=== PATIENT | male | born 1940 | race Caucasian/White ===

== ENCOUNTER 2017-03-10 08:42 | Inpatient (IN) ==
[2017-03-10 16:12] LABS: Basophils % 0.3 % (0.0-0.8); Eosinophils # 0.1 10*3/uL (0.0-0.87); Eosinophils % 1.3 % (0.00-10.9); Hematocrit 41.8 VOL% (42.0-52.0); Hemoglobin 14.2 GM/DL (14.0-18.0); Immature Granulocytes % 0.3 %; Immature Granulocytes Absolute 0.03 #; Lymphocytes # 2.3 10*3/uL (1.4-4.0); Lymphocytes % 22.5 % (21.2-54.2); Mean Corpuscular Hemoglobin 32 PG (27-34); Mean Corpuscular Volume 92.7 FL (87-102); Monocytes # 1.5 10*3/uL (0.11-0.8); Monocytes % 14.5 % (1.7-12.7); Neutrophils # 6.3 10*3/uL (1.4-7.4); Neutrophils % 61.1 % (38.7-73.9); Platelet Count 194 T/CUMM (130-400); Red Blood Count 4.51 MC/CUMM (3.8-5.5); Red Cell Distribution Width 14.1 % (9.3-17.3); White Blood Count 10.4 T/CUMM (4-12)
[2017-03-10 16:23] LABS: Albumin 3.5 G/DL (3.4-5.0); Bilirubin,Total 0.7 MG/DL (0.2-1.0); Calcium 9.6 MG/DL (8.5-10.1); Osmolality,Calculated 274.8 MOS/KG (273-304); Potassium 3.8 MMOL/L (3.5-5.1); Total Protein 7.5 G/DL (6.4-8.3)
--- NOTE | 2017-03-10 16:54 | Cardiothoracic History & Phys ---
Assessment and Plan - Time spent with patient Time spent with patient: Greater than 30 minutes (1) Coronary artery disease Status: Acute Assessment and plan: Risk Model and Variables - STS Adult Cardiac Surgery Database Version 2.81 RISK SCORES About the STS Risk Calculator Procedure: CAB Only Risk of Mortality: 1.935% Morbidity or Mortality: 20.191% Long Length of Stay: 9.841% Short Length of Stay: 28.252% Permanent Stroke: 1.844% Prolonged Ventilation: 15.06% DSW Infection: 1.06% Renal Failure: 4.836% Reoperation: 6.942% 76-year-old male who was transferred from [place] under my care for coronary artery bypass graft. Risks benefits and alternatives were discussed with the patient and the family in details. They understand and they are willing and eager to proceed as soon as possible. I will obtain a lower extremity vein mapping today to evaluate the vein grafts. I would keep the patient under close observation and telemetry unit in case he developed severe chest pain indicating myocardial ischemia since he was having unstable angina prior to admission. Current Visit: Yes History of Present Illness Chief complaint: Unstable angina History of present illness: Mr. Monreal is a 76 year old male has been having some shortness of breath and chest pain at rest. The patient had a cardiac cath yesterday at [place] showing severe multivessel coronary artery disease. I was consulted to evaluate if the patient is a candidate for surgery. I evaluated the patient and I transferred him here under my care to proceed with CABG. The patient currently has no pain. He has no complaints. Home Medications Medication Instructions Recorded Confirmed Type Allopurinol [Allopurinol] 300 mg PO DAILY 03/10/17 03/10/17 History Amlodipine Besylate [Amlodipine 10 mg PO DAILY 03/10/17 03/10/17 History Besylate] Ezetimibe [Ezetimibe] 10 mg PO DAILY 03/10/17 03/10/17 History Latanoprost 0.005% Oph Soln 1 drop BOTH EYES BEDTIME 03/10/17 03/10/17 History [Xalatan 0.005% Oph Soln] Lisinopril [Lisinopril] 5 mg PO DAILY 03/10/17 03/10/17 History Metformin HCl [Metformin HCl] 500 mg PO BID 03/10/17 03/10/17 History Metoprolol Succinate Xl [Toprol Xl] 200 mg PO DAILY 03/10/17 03/10/17 History Rosuvastatin Calcium [Rosuvastatin 40 mg PO BEDTIME 03/10/17 03/10/17 History Calcium] hydroCHLOROthiazide 25 mg PO DAILY 03/10/17 03/10/17 History [Hydrochlorothiazide] 12 point system: reviewed and no additional remarkable complaints except as stated (HPI) Medical,Surgical,& Family Hx - Medical History Cardio: History of: CAD, Hypertension, Cardiovascular Problems HEENT: History of: Eye Problem (cataracts removed) Endocrine: History of: Diabetes Mellitus (NIDDM) (metformin to treat) Rheumatology: History of;: Gout - Surgical History Cardiac Surgeries: Sugical HX of: Cardiac Catheterization (03/09/17) Abdominal Surgeries: Surgical HX of: Colonoscopy - Family History Family History: Reports;: Family Diabetes, Family Heart Disease, Family Hypertension, Family Stroke Denies;: Family Anesthesia Reaction, Family Cancer - Social History Smoking Status: Never smoker Frequency of Alcohol Use: None Type of Drug Use: None Cardiology Physical Exam - Constitutional Vitals: Vital Signs Temp Pulse Resp BP Pulse Ox 98.2 F 70 18 138/73 100 03/10/17 14:37 03/10/17 14:37 03/10/17 14:37 03/10/17 14:37 03/10/17 14:37 Intake and Output 03/10/17 03/10/17 03/10/17 06:59 14:59 22:59 Other: Weight 99.507 kg Patient Weight 03/11/17 06:59 Weight 99.507 kg General appearance: morbidly obese - Head Head exam: Present: normal inspection - Eye Eye exam: Present: EOMI Pupils: Present: IVORY - Neck Neck exam: Present: normal inspection - Respiratory Respiratory exam: Present: clear to auscultation bilaterally - Cardiovascular Cardiovascular exam: Present: regular rate and rhythm - GI/Abdominal GI/Abdominal exam: Present: normal bowel sounds Result/EKG - Labs CBC & BMP: 03/10/17 15:53 03/10/17 15:53 Labs: Laboratory Results - last 24 hr 03/10/17 03/10/17 15:53 15:53 WBC 10.4 RBC 4.51 Hgb 14.2 Hct 41.8 L MCV 92.7 MCH 32 MCHC 34.0 RDW 14.1 Plt Count 194 MPV 10.0 Neut % (Auto) 61.1 Lymph % (Auto) 22.5 [place] % (Auto) 14.5 H Eos % (Auto) 1.3 Baso % (Auto) 0.3 Neut # (Auto) 6.3 Lymph # (Auto) 2.3 [place] # (Auto) 1.5 H Eos # (Auto) 0.1 Baso # (Auto) 0.0 Immature Gran % 0.3 Nucleated RBC % 0.0 Immature Gran # 0.03 Nucleated RBCs # 0.00 Immature Plt Fraction 0.0 Sodium 137 Potassium 3.8 Chloride 102 Carbon Dioxide 29 Anion Gap 9.8 BUN 15 Creatinine 1.00 GFR Calculation 91 BUN/Creatinine Ratio 15.00 Glucose 123 H Calculated Osmolality 274.8 Calcium 9.6 Total Bilirubin 0.70 AST 40 H ALT 75 H Alkaline Phosphatase 47 Total Protein 7.5 Albumin 3.5 Globulin 4.0 H Albumin/Globulin Ratio 0.8 L Quality Measures - VTE Contraindication to Pharmacological VTE Prophylaxis: Active Bleeding
--- NOTE | 2017-03-10 17:36 | XRay Report ---
Portable chest Exam date: 03/10/2017 3:37 PM Indication: Chest pain coronary artery disease Comparison: Not available Findings: Cardiomediastinal contours are within normal limits. Elevation left hemidiaphragm. No acute osseous abnormalities. Visualized upper abdomen demonstrates no acute pathology. Impression: Marked elevation of the left hemidiaphragm PROCEDURE INTERPRETED AT [facility] DEPARTMENT OF RADIOLOGY Final Report Signed by: Katarzyna Freeman MD
--- NOTE | 2017-03-10 18:46 | Ultrasound Report ---
Exam: US venous doppler LE BI Indication: Pain and swelling Date: 03/10/2017 423 PM Technique: Freeman scale Doppler with color flow and spectral broadening was performed in routine fashion of the lower extremities per routine protocol Findings: The right common femoral, superficial femoral, popliteal and proximal saphenous saphenous veins are patent with normal waveform phasicity and augmentation as well as complete vessel compressibility. There is no evidence of popliteal or Castillo's cyst. The left common femoral, superficial femoral, popliteal and proximal saphenous saphenous veins are patent with normal waveform phasicity and augmentation as well as complete vessel compressibility. There is no evidence of popliteal or Castillo's cyst. Impression: No evidence of deep venous thrombosis within bilateral lower extremity Ultrasound images were captured and stored. PROCEDURE INTERPRETED AT [facility] DEPARTMENT OF RADIOLOGY Final Report Signed by: Katarzyna Freeman MD
[2017-03-11 06:22] LABS: Basophils % 0.3 % (0.0-0.8); Eosinophils # 0.2 10*3/uL (0.0-0.87); Eosinophils % 1.8 % (0.00-10.9); Hematocrit 41.9 VOL% (42.0-52.0); Hemoglobin 14.2 GM/DL (14.0-18.0); Immature Granulocytes % 0.3 %; Immature Granulocytes Absolute 0.03 #; Lymphocytes # 3.1 10*3/uL (1.4-4.0); Lymphocytes % 30.5 % (21.2-54.2); Mean Corpuscular HGB Conc 33.9 GM/DL (32-36); Mean Corpuscular Hemoglobin 31 PG (27-34); Mean Corpuscular Volume 92.3 FL (87-102); Mean Platelet Volume 10.4 FL (9.6-12.0); Monocytes # 1.3 10*3/uL (0.11-0.8); Monocytes % 12.5 % (1.7-12.7); Neutrophils # 5.6 10*3/uL (1.4-7.4); Neutrophils % 54.6 % (38.7-73.9); Platelet Count 190 T/CUMM (130-400); Red Blood Count 4.54 MC/CUMM (3.8-5.5); Red Cell Distribution Width 14.2 % (9.3-17.3); White Blood Count 10.3 T/CUMM (4-12)
[2017-03-11] MEDS: SODIUM CHLORIDE 0.9% 1,000 ML IV SCH ×2 (06:59→18:46)
[2017-03-11 07:01] LABS: Albumin 3.5 G/DL (3.4-5.0); Bilirubin,Total 1.1 MG/DL (0.2-1.0); Calcium 9.7 MG/DL (8.5-10.1); Osmolality,Calculated 274.7 MOS/KG (273-304); Potassium 3.9 MMOL/L (3.5-5.1); Total Protein 7.4 G/DL (6.4-8.3)
--- NOTE | 2017-03-11 08:59 | CT Report ---
History: Abnormal chest x-ray. Marked elevation left hemidiaphragm. Coronary artery disease Date: 03/11/2017 Study: CT chest without contrast Comparison exam: Chest x-ray 03/10/[address] sections were obtained through the lungs without contrast. There is nonspecific elevation of the left hemidiaphragm approximately 9 cm higher than the right hemidiaphragm. Consider diaphragmatic eventration and diaphragmatic paralysis. There is no obvious left hilar mass noted on this noncontrast study. No mediastinal mass or mediastinal lymphadenopathy is seen. There is no thoracic aortic aneurysm. There is severe coronary artery calcification with involvement of the left main, left anterior descending, and left circumflex coronary arteries. There is some mild paraseptal emphysema in the right lung. There is some atelectatic change in the left lower lobe which could be related to passive atelectasis from diaphragmatic elevation. There is some cylindrical bronchiectasis of a mild degree in the upper lobes, lower lobes, and right middle lobe. Spondylotic changes of the spine are present. There is a 2.7 cm rounded water density opacity in the mid left kidney, likely renal cyst. The CT exam was performed using one or more of the following dose reduction techniques: Automated exposure control, adjustment of the mA and/or kV according to patient size, or use of iterative reconstruction technique. Impression: Elevation left hemidiaphragm of uncertain chronicity. This could be related to diaphragmatic eventration or diaphragmatic paralysis. There is no definite left hilar or mediastinal mass. Left lower lobe atelectasis may be related to passive atelectasis from the diaphragmatic eventration Prominent coronary artery calcification Mild cylindrical bronchiectasis Mild paraseptal emphysema PROCEDURE INTERPRETED AT [facility] DEPARTMENT OF RADIOLOGY Final Report Signed by: Dr. Koki Leos
[2017-03-11] MEDS: CHLORHEXIDINE 4% SOLN 118 ML BOTTLE TOP SCH ×2 (15:31→21:35)
--- NOTE | 2017-03-11 16:02 | Cardiothoracic Progress Note ---
Assessment and Plan (1) Coronary artery disease Status: Acute Assessment and plan: 76-year-old male with severe multivessel coronary artery disease. The patient currently has no complaints. He is ready for surgery on March 12 for CABG. Please note that on his admission chest x-ray I noted elevation of the left hemidiaphragm with possible eventration. I obtained a CT scan and confirmed the same findings. This was explained in details with the patient. Current Visit: Yes Exam (Progress Note) - Constitutional Vitals: Period Temp Pulse Resp BP Sys/Vance Pulse Ox Last 24 Hr 97.3 F-99.2 F 65-73 16-22 114-158/60-83 96-98 Result/EKG - Labs CBC & BMP: 03/11/17 04:08 03/11/17 04:08 Labs: Laboratory Results - last 24 hr 03/10/17 03/10/17 03/10/17 15:53 15:53 15:53 WBC 10.4 RBC 4.51 Hgb 14.2 Hct 41.8 L MCV 92.7 MCH 32 MCHC 34.0 RDW 14.1 Plt Count 194 MPV 10.0 Neut % (Auto) 61.1 Lymph % (Auto) 22.5 [place] % (Auto) 14.5 H Eos % (Auto) 1.3 Baso % (Auto) 0.3 Neut # (Auto) 6.3 Lymph # (Auto) 2.3 [place] # (Auto) 1.5 H Eos # (Auto) 0.1 Baso # (Auto) 0.0 Immature Gran % 0.3 Nucleated RBC % 0.0 Immature Gran # 0.03 Nucleated RBCs # 0.00 Immature Plt Fraction 0.0 Sodium 137 Potassium 3.8 Chloride 102 Carbon Dioxide 29 Anion Gap 9.8 BUN 15 Creatinine 1.00 GFR Calculation 91 BUN/Creatinine Ratio 15.00 Glucose 123 H POC Glucose Calculated Osmolality 274.8 Calcium 9.6 Total Bilirubin 0.70 AST 40 H ALT 75 H Alkaline Phosphatase 47 Total Protein 7.5 Albumin 3.5 Globulin 4.0 H Albumin/Globulin Ratio 0.8 L Blood Type A POSITIVE Antibody Screen Negative Crossmatch 03/10/17 03/11/17 03/11/17 18:53 04:08 04:08 WBC 10.3 RBC 4.54 Hgb 14.2 Hct 41.9 L MCV 92.3 MCH 31 MCHC 33.9 RDW 14.2 Plt Count 190 MPV 10.4 Neut % (Auto) 54.6 Lymph % (Auto) 30.5 [place] % (Auto) 12.5 Eos % (Auto) 1.8 Baso % (Auto) 0.3 Neut # (Auto) 5.6 Lymph # (Auto) 3.1 [place] # (Auto) 1.3 H Eos # (Auto) 0.2 Baso # (Auto) 0.0 Immature Gran % 0.3 Nucleated RBC % 0.0 Immature Gran # 0.03 Nucleated RBCs # 0.00 Immature Plt Fraction 0.0 Sodium 138 Potassium 3.9 Chloride 102 Carbon Dioxide 29 Anion Gap 10.9 BUN 12 Creatinine 0.90 GFR Calculation 103 BUN/Creatinine Ratio 13.00 Glucose 95 POC Glucose 177 H Calculated Osmolality 274.7 Calcium 9.7 Total Bilirubin 1.10 H AST 39 H ALT 76 H Alkaline Phosphatase 43 L Total Protein 7.4 Albumin 3.5 Globulin 3.9 H Albumin/Globulin Ratio 0.8 L Blood Type Antibody Screen Crossmatch 03/11/17 03/11/17 04:08 07:35 WBC RBC Hgb Hct MCV MCH MCHC RDW Plt Count MPV Neut % (Auto) Lymph % (Auto) [place] % (Auto) Eos % (Auto) Baso % (Auto) Neut # (Auto) Lymph # (Auto) [place] # (Auto) Eos # (Auto) Baso # (Auto) Immature Gran % Nucleated RBC % Immature Gran # Nucleated RBCs # Immature Plt Fraction Sodium Potassium Chloride Carbon Dioxide Anion Gap BUN Creatinine GFR Calculation BUN/Creatinine Ratio Glucose POC Glucose 127 H Calculated Osmolality Calcium Total Bilirubin AST ALT Alkaline Phosphatase Total Protein Albumin Globulin Albumin/Globulin Ratio Blood Type A POSITIVE Antibody Screen Negative Crossmatch See Detail Quality Measures - VTE Contraindication to Pharmacological VTE Prophylaxis: Active Bleeding
[2017-03-11] MEDS: CHLORHEXIDINE 0.12% ORAL RINSE 60 ML BOTTLE SWISH/SPIT SCH (21:34)
[2017-03-12] MEDS ORDERED: PAPAVERINE 60 MG/2 ML VIAL ONE (04:35)
[2017-03-12] MEDS ORDERED: TISSUE ADHESIVE 1 EACH APPLICATOR TOP ONE (04:35)
[2017-03-12] MEDS ORDERED: VANCOMYCIN 1,000 MG VIAL ONE (04:36)
[2017-03-12] MEDS: CHLORHEXIDINE 4% SOLN 118 ML BOTTLE TOP SCH ×2 (05:08→11:21)
[2017-03-12] MEDS: CHLORHEXIDINE 0.12% ORAL RINSE 60 ML BOTTLE SWISH/SPIT SCH ×3 (05:08→21:53)
[2017-03-12] MEDS ORDERED: FAMOTIDINE 20 MG TABLET PO ONE (05:51)
[2017-03-12] MEDS ORDERED: LORazepam 1 MG TABLET PO ONE (05:52)
[2017-03-12] MEDS ORDERED: CEFUROXIME INJ 1,500 MG in SODIUM CHLORIDE 0.9% 100 ML IV ONE (06:00)
[2017-03-12] MEDS ORDERED: DEXMEDETOMIDINE 200 MCG/2 ML VIAL IV ONE (06:03)
[2017-03-12] MEDS ORDERED: CALCIUM CHLORIDE 1,000 MG/10 ML VIAL IV ONE (06:33)
[2017-03-12] MEDS ORDERED: NITROGLYCERIN 50 MG/250 ML BOTTLE IV ONE (06:33)
[2017-03-12] MEDS ORDERED: ETOMIDATE 20 MG/10 ML VIAL IV ONE (06:33)
[2017-03-12] MEDS ORDERED: CALCIUM CHLORIDE 1,000 MG/10 ML SYRINGE IV ONE (06:33)
[2017-03-12] MEDS ORDERED: PHENYLEPHRINE 20 MG/250 ML PREMIX IV ONE (06:33)
[2017-03-12] MEDS ORDERED: AMINOCAPROIC ACID 5,000 MG/20 ML VIAL IV ONE (06:33)
[2017-03-12] MEDS ORDERED: MINERAL OIL/PETROLATUM OPH OINT 3.5 GM TUBE ONE (06:33)
[2017-03-12] MEDS ORDERED: VECURONIUM 10 MG VIAL IV ONE (06:33)
[2017-03-12] MEDS ORDERED: LIDOCAINE 1% 5 ML VIAL ONE (06:33)
[2017-03-12] MEDS ORDERED: HEPARIN/NACL 0.9% 2 UNITS/ML 500 ML IV ONE (06:33)
[2017-03-12 07:26] LABS: ABG Base Excess 0.1 MMOL/L (-2.5-2.5); ABG HCO3 24.6 MMOL/L (20-26); ABG Oxygen Saturation 99.5 % (95-100); ABG PCO2 37.1 MM HG (35-48); ABG PH 7.423 (7.35-7.45); ABG TCO2 21.2 MMOL/L (23-27); Glucose Heart Surgery 117 MG/DL (74-106); Hematocrit Heart Surgery 39.1 PERCENT (42-52); Hemoglobin Heart Surgery 12.7 G/DL (14.0-18.0); Ionized Calcium Arterial 1.17 MMOL/L (1.21-1.46); PCO2 Patient Temp Arterial 37.1 MMHG; PH Patient Temp Arterial 7.423; Patient Temperature 37 CELCIUS; Potassium Heart/CVR 3.6 MMOL/L (3.5-5.1); Sodium Heart/CVR 140 MMOL/L (135-145)
[2017-03-12 07:53] LABS: Apearance,Urine Slightly Hazy (Clear); Bilirubin,Urine Negative (Negative); Blood, Urine Small mg/dL (Negative); Glucose,Urine (UA) Negative (Negative); Ketones,Urine Negative (Negative); Mucus,Urine Occasional /LPF (Occasional); Nitrite,Urine Negative (Negative); Protein,Urine Negative; RBC,Urine <1 /HPF (0-4); Squamous Epithelial Cell,Urine Occasional /HPF (0-10); Urine Color Yellow (Yellow); Urine Specific Gravity 1.019 (1.001-1.035); Urine Urobilinogen < 2.0 EU/DL (0.2-1.0); WBC,Urine 1 /HPF (0-6)
[2017-03-12] MEDS ORDERED: POTASSIUM CHLORIDE RIDER 100 ML IV ONE (09:17)
[2017-03-12] MEDS ORDERED: NITROPRUSSIDE 50 MG/2 ML VIAL ONE (09:17)
[2017-03-12] MEDS ORDERED: ALBUMIN 5% 12.5 GM/250 ML VIAL IV ONE (09:17)
[2017-03-12] MEDS ORDERED: MIDAZOLAM 2 MG/2 ML VIAL ONE (09:18)
[2017-03-12 09:36] LABS: Hematocrit Heart Surgery 25.7 PERCENT (42-52); Hemoglobin Heart Surgery 8.3 G/DL (14.0-18.0); PCO2 Patient Temp Venous 44.8 MM HG; PH Patient Temp Venous 7.379; Potassium Heart/CVR 4.6 MMOL/L (3.5-5.1); VBG Base Excess 1.1 MEQ/L (0-4); VBG HCO3 25.1 MEQ/L (24-28); VBG Oxygen Saturation 76.6 %; VBG PCO2 44.8 MMHG (41-51); VBG PH 7.379
[2017-03-12 10:05] LABS: Hematocrit Heart Surgery 26.8 PERCENT (42-52); Hemoglobin Heart Surgery 8.6 G/DL (14.0-18.0); PCO2 Patient Temp Venous 38.2 MM HG; PH Patient Temp Venous 7.459; PO2 Patient Temp Venous 34.1 MM HG; Potassium Heart/CVR 4.5 MMOL/L (3.5-5.1); VBG Base Excess 3.3 MEQ/L (0-4); VBG Oxygen Saturation 73.4 %; VBG PCO2 42.1 MMHG (41-51); VBG PH 7.43; VBG PO2 39.3 MMHG (17-40)
[2017-03-12 10:43] LABS: ABG Base Excess 0.6 MMOL/L (-2.5-2.5); ABG Oxygen Saturation 99.6 % (95-100); ABG PH 7.408 (7.35-7.45); ABG TCO2 23.2 MMOL/L (23-27); Glucose Heart Surgery 306 MG/DL (74-106); Hematocrit Heart Surgery 28.7 PERCENT (42-52); Hemoglobin Heart Surgery 9.2 G/DL (14.0-18.0); PH Patient Temp Arterial 7.408; Patient Temperature 37 CELCIUS; Potassium Heart/CVR 3.8 MMOL/L (3.5-5.1); Sodium Heart/CVR 132 MMOL/L (135-145)
[2017-03-12] MEDS ORDERED: MANNITOL 100 GM/500 ML BAG IV ONE (11:20)
[2017-03-12] MEDS ORDERED: DEXTROSE 5% KCL 20 MEQ 40 MEQ/2,000 ML BAG IV ONE (11:20)
[2017-03-12] MEDS ORDERED: SODIUM BICARBONATE 50 MEQ/50 ML SYRINGE IV ONE (11:21)
[2017-03-12] MEDS ORDERED: PROTAMINE SULFATE 250 MG/25 ML VIAL IV ONE (11:21)
[2017-03-12] MEDS ORDERED: ALBUMIN 25% 25 GM/100 ML VIAL IV ONE (11:21)
[2017-03-12] MEDS ORDERED: HEPARIN 10,000 UNIT/10 ML VIAL ONE (11:21)
[2017-03-12] MEDS ORDERED: FUROSEMIDE 20 MG/2 ML VIAL ONE (11:21)
[2017-03-12] MEDS ORDERED: methylPREDNISolone SOD SUC 1,000 MG/8 ML VIAL ONE (11:21)
[2017-03-12] MEDS ORDERED: MAGNESIUM SULFATE 1 GM/2 ML VIAL ONE (11:21)
[2017-03-12] MEDS ORDERED: PROTAMINE SULFATE 50 MG/5 ML VIAL IV ONE (11:22)
[2017-03-12] MEDS ORDERED: MIDAZOLAM 10 MG/2 ML VIAL ONE (11:54)
[2017-03-12] MEDS ORDERED: SODIUM CHLORIDE 0.9% 100 ML IV ONE (11:54)
[2017-03-12] MEDS ORDERED: SODIUM CHLORIDE 0.9% 250 ML IV ONE (11:54)
[2017-03-12] MEDS ORDERED: SEVOFLURANE 1 UNIT/15 MINUTE INH ONE (11:54)
[2017-03-12] MEDS ORDERED: SODIUM CHLORIDE 0.9% 2,000 ML IV ONE (11:54)
[2017-03-12] MEDS ORDERED: LACTATED RINGERS 1,000 ML IV ONE (11:54)
[2017-03-12] MEDS ORDERED: fentaNYL 100 MCG/2 ML VIAL ONE ×3 (11:54→14:43)
[2017-03-12] MEDS ORDERED: ePHEDrine 50 MG/ML AMP ONE (11:55)
[2017-03-12] MEDS: SODIUM CHLORIDE 0.45% 1,000 ML IV SCH ×2 (12:00)
[2017-03-12] MEDS ORDERED: MAGNESIUM SULF RIDER 4 GM in PREMIX 1 EACH IV PRN (12:08)
[2017-03-12] MEDS ORDERED: MIDAZOLAM 2 MG/2 ML VIAL IV PRN (12:08)
[2017-03-12] MEDS ORDERED: POTASSIUM CHLORIDE RIDER 10 MEQ in PREMIX 1 EACH IV PRN (12:08)
[2017-03-12] MEDS ORDERED: SODIUM CHLORIDE 0.9% 250 ML IV PRN (12:08)
[2017-03-12] MEDS ORDERED: MORPHINE 10 MG/1 ML VIAL IV PRN (12:08)
[2017-03-12] MEDS ORDERED: CALCIUM CHLORIDE 1,000 MG/10 ML SYRINGE IV PRN (12:08)
[2017-03-12] MEDS ORDERED: CHLORHEXIDINE 4% SOLN 118 ML BOTTLE TOP PRN (12:08)
[2017-03-12] MEDS ORDERED: DEXTROSE 50% 25 GM/50 ML SYRINGE IV PRN ×2 (12:08)
[2017-03-12] MEDS ORDERED: ACETAMINOPHEN 650 MG SUPP RECTAL PRN (12:08)
[2017-03-12] MEDS ORDERED: MORPHINE 2 MG/1 ML SYRINGE IV PRN (12:08)
[2017-03-12 12:12] LABS: ABG HCO3 24.4 MMOL/L (20-26); ABG Oxygen Saturation 96.7 % (95-100); ABG PCO2 41.1 MM HG (35-48); ABG PH 7.391 (7.35-7.45); ABG PO2 91.2 MM HG (80-95); ABG TCO2 22.6 MMOL/L (23-27); Glucose Heart Surgery 229 MG/DL (74-106); Hematocrit Heart Surgery 31.7 PERCENT (42-52); Hemoglobin Heart Surgery 10.3 G/DL (14.0-18.0); Potassium Heart/CVR 3.3 MMOL/L (3.5-5.1)
[2017-03-12 12:13] LABS: Basophils % 0.3 % (0.0-0.8); Eosinophils % 0.3 % (0.00-10.9); Hematocrit 31.6 VOL% (42.0-52.0); Immature Granulocytes % 0.9 %; Immature Granulocytes Absolute 0.11 #; Lymphocytes # 1.7 10*3/uL (1.4-4.0); Lymphocytes % 13.8 % (21.2-54.2); Mean Corpuscular HGB Conc 34.5 GM/DL (32-36); Mean Corpuscular Hemoglobin 32 PG (27-34); Mean Corpuscular Volume 93.5 FL (87-102); Monocytes # 0.6 10*3/uL (0.11-0.8); Monocytes % 4.8 % (1.7-12.7); Neutrophils # 9.6 10*3/uL (1.4-7.4); Neutrophils % 79.9 % (38.7-73.9); Red Blood Count 3.38 MC/CUMM (3.8-5.5); Red Cell Distribution Width 14.3 % (9.3-17.3)
[2017-03-12 12:18] LABS: INR 1.2; PT Patient Result 12.2 SECS; Partial Thromboplastin Time 27.1 SECS (0-40)
[2017-03-12 12:22] LABS: Hemoglobin 10.9 GM/DL (14.0-18.0); Platelet Count 135 T/CUMM (130-400)
[2017-03-12] MEDS: POTASSIUM CHLORIDE RIDER 20 MEQ in PREMIX 1 EACH IV PRN ×3 (12:30→17:18)
[2017-03-12] MEDS: INSULIN REGULAR DRIP 100 ML IV SCH ×2 (12:30→21:59)
[2017-03-12 12:55] LABS: Calcium 8.6 MG/DL (8.5-10.1); Osmolality,Calculated 283.5 MOS/KG (273-304); Potassium 3.5 MMOL/L (3.5-5.1)
[2017-03-12 12:59] LABS: Lactic Acid 2.7 MMOL/L (0.4-2.0)
--- NOTE | 2017-03-12 13:00 | Operative Note ---
Date of procedure: 03/12/17 Pre-op diagnosis: Severe multivessel coronary artery disease Post-op diagnosis: same Procedure: Procedure: 1. [place] of right great saphenous vein 2. [place] of the left internal mammary artery 3. Institution of cardiopulmonary bypass 4. Coronary artery bypass graft 3, GRACIA to LAD, saphenous vein graft to the diagonal artery saphenous vein graft to the first obtuse marginal artery Findings: 76-year-old male with severe three-vessel multivessel coronary artery disease. Distal runoffs and distal vessels were also diseased with some calcifications. The obtuse marginal branch was small as well as the diagonal however the diagonal was a better target. The LAD was around 1.5-2 mm in size. Grafts are all obtained with good flow after institution. Patient recovered well without any problems. Details of the procedure: The patient was brought into the OR table and placed supine and general endotracheal anesthesia was induced without any problems. Timeout was performed. Antibiotics were given. The chest was prepped and draped in the fashion. Midline incision was made on the chest. The sternum was opened. Hemostasis was achieved. I dissected down the left internal mammary artery in its entirety from the first rib all the way down to the xiphisternum. I then inserted and angled chest tube to the left chest. After that, I turned my attention to opening the pericardium. I exposed the heart and aorta. I then started placing the pericardial stitches. Heparin was given. I then cannulating the proximal arch of the aorta. After that I cannulated the right atrium to the IVC. I then proceeded with preparing the mammary. I then made my pericardial window. Started the cardiopulmonary bypass. I inserted the cardioplegia needle. Cross-clamp was applied. Cardioplegia was given. The heart was arrested successfully. I then identified the diagonal artery. Distal anastomosis was achieved between saphenous vein and the diagonal with a 7-0 Prolene. It was tested and it was in good condition. I then moved my attention to the obtuse marginal artery. It was diseased except for the distal segment. I identified that segment and the open-ended. This anastomosis was again achieved between second saphenous ein and the artery. This was tested and it was condition. I then started rewarming the patient and t distal anastomosis was achieved between the GRACIA and LAD. The LAD was diseased proximally and in the midsection. I made anastomosis to distal to that. I then removed the Clamp and the heart recovered well to sinus rhythm. I then instituted the proximal anastomosis to the obtuse marginal graft then to the diagonal graft. Hemostasis was achieved. I weaned the patient from bypass in good condition. Protamine was given. Hemostasis was achieved. All counts were correct at the end of the procedure. The patient was decannulated successfully. Chest tube were inserted. The sternum was closed using wires. Subcutaneous tissues closed uterine using running PDS. The skin was closed using Monocryl. The patient was transferred to ICU in good condition. Anesthesia: GAYLA Surgeon / Physician: Bryanna Camara Estimated blood loss: other (Cardiopulmonary bypass) Tourniquet Time (Minutes): 51 Specimens: none sent Condition: stable Disposition: ICU Results - Labs CBC & BMP: 03/12/17 12:00 03/12/17 12:10 Discharge Plan - Discharge Medications No Action Rosuvastatin Calcium [Rosuvastatin Calcium] 40 mg PO BEDTIME Metoprolol Succinate Xl [Toprol Xl] 200 mg PO DAILY Metformin HCl [Metformin HCl] 500 mg PO BID Lisinopril [Lisinopril] 5 mg PO DAILY Ezetimibe [Ezetimibe] 10 mg PO DAILY Amlodipine Besylate [Amlodipine Besylate] 10 mg PO DAILY Allopurinol [Allopurinol] 300 mg PO DAILY hydroCHLOROthiazide [Hydrochlorothiazide] 25 mg PO DAILY Latanoprost 0.005% Oph Soln [Xalatan 0.005% Oph Soln] 1 drop BOTH EYES BEDTIME - Follow Up or Referral - Forms/Instructions
[2017-03-12] MEDS: ALBUMIN 5% 12.5 GM in PREMIX 1 EACH IV PRN ×6 (13:03→21:43)
--- NOTE | 2017-03-12 13:30 | XRay Report ---
Portable chest Date: 03/12/2017 Clinical history: Endotracheal tube and line placement Comparison: 03/10/2017 Technique: Portable AP sitting chest Findings: The heart is normal in size with interval median sternotomy. The endotracheal tube and mediastinal chest tubes are in satisfactory position. Right IJ CVP line with the tip in the right pulmonary artery overlying the right hilum. Persistent relative elevation of the left hemidiaphragm with atelectasis at the lung bases and small left pleural effusion. No pneumothorax. Impression: Interval median sternotomy with the supportive devices in satisfactory position. No pneumothorax. Persistent elevated left hemidiaphragm with adjacent atelectasis. PROCEDURE INTERPRETED AT [facility] DEPARTMENT OF RADIOLOGY Final Report Signed by: Dr. Raisa Dumont
[2017-03-12] MEDS: INSULIN REGULAR 100 UNIT/ML IV PRN ×2 (14:02→18:07)
[2017-03-12] MEDS: MAGNESIUM SULF RIDER 2 GM in PREMIX 1 EACH IV PRN (14:08)
--- NOTE | 2017-03-12 14:21 | Anesthesia Post-Op ---
Anesthesia Post OP - Post Ansesthetic Evaluation Patient seen in post op: Yes Resp: within normal limits CV: within normal limits Mental: within normal limits Temp: within normal limits [facility]: within normal limits Nausea and Vomiting: within normal limits Pain: within normal limits
[2017-03-12 17:07] LABS: ABG Base Excess -2.2 MMOL/L (-2.5-2.5); ABG HCO3 22.6 MMOL/L (20-26); ABG Oxygen Saturation 98.1 % (95-100); ABG PCO2 40.2 MM HG (35-48); ABG PH 7.365 (7.35-7.45); ABG TCO2 21.1 MMOL/L (23-27); Glucose Heart Surgery 143 MG/DL (74-106); Hematocrit Heart Surgery 29.8 PERCENT (42-52); Hemoglobin Heart Surgery 9.6 G/DL (14.0-18.0); Potassium Heart/CVR 3.6 MMOL/L (3.5-5.1)
[2017-03-12] MEDS: ONDANSETRON 4 MG/2 ML VIAL IV PRN (19:51)
[2017-03-12] MEDS: CEFUROXIME INJ 1,500 MG in SODIUM CHLORIDE 0.9% 100 ML IV SCH (19:53)
[2017-03-13] MEDS: SODIUM CHLORIDE 0.45% 1,000 ML IV SCH ×3 (01:16→14:31)
[2017-03-13 03:35] LABS: Basophils % 0.1 % (0.0-0.8); Hematocrit 27.9 VOL% (42.0-52.0); Hemoglobin 9.5 GM/DL (14.0-18.0); Immature Granulocytes % 0.6 %; Lymphocytes # 0.9 10*3/uL (1.4-4.0); Lymphocytes % 5.2 % (21.2-54.2); Mean Corpuscular HGB Conc 34.1 GM/DL (32-36); Mean Corpuscular Hemoglobin 32 PG (27-34); Mean Corpuscular Volume 93.6 FL (87-102); Mean Platelet Volume 10.3 FL (9.6-12.0); Monocytes # 2.1 10*3/uL (0.11-0.8); Monocytes % 11.5 % (1.7-12.7); Neutrophils # 14.8 10*3/uL (1.4-7.4); Neutrophils % 82.6 % (38.7-73.9); Platelet Count 114 T/CUMM (130-400); Red Blood Count 2.98 MC/CUMM (3.8-5.5); Red Cell Distribution Width 14.6 % (9.3-17.3); White Blood Count 17.9 T/CUMM (4-12)
[2017-03-13 03:55] LABS: Calcium 8.3 MG/DL (8.5-10.1); Magnesium 2.1 MG/DL (1.8-2.4); Osmolality,Calculated 276.5 MOS/KG (273-304); Potassium 4.2 MMOL/L (3.5-5.1)
[2017-03-13] MEDS: MAGNESIUM SULF RIDER 2 GM in PREMIX 1 EACH IV PRN (05:05)
[2017-03-13] MEDS: CEFUROXIME INJ 1,500 MG in SODIUM CHLORIDE 0.9% 100 ML IV SCH ×2 (07:33→20:17)
[2017-03-13] MEDS ORDERED: FUROSEMIDE 40 MG/4 ML VIAL IV ONE (07:56)
--- NOTE | 2017-03-13 08:35 | XRay Report ---
XR chest 1V portable Indication: Pneumothorax postoperative Comparison: 12 March 2017 Findings: The heart and mediastinum are stable in size and configuration with cardiac surgery changes. Endotracheal tube and NG tube is been removed. Lines and tubes are unchanged in position. The pulmonary vascularity is normal in caliber. There is increased left lower lung density and volume loss on the left. No other lung infiltrates, effusions, pneumothorax or other abnormality is demonstrated. Impression: Volume loss and increased left lower lung density, likely atelectasis. Endotracheal tube and NG tube have been removed. PROCEDURE INTERPRETED AT [facility] DEPARTMENT OF RADIOLOGY Final Report Signed by: Dr. Yosef Gleason
[2017-03-13] MEDS: KETOROLAC 30 MG/1 ML VIAL IV SCH ×3 (08:42→20:17)
[2017-03-13] MEDS: ASPIRIN EC 325 MG TABLET PO SCH (09:59)
[2017-03-13] MEDS: CLOPIDOGREL 75 MG TABLET PO SCH (09:59)
[2017-03-13] MEDS: FUROSEMIDE 40 MG TABLET PO SCH (09:59)
[2017-03-13] MEDS: CHLORHEXIDINE 0.12% ORAL RINSE 60 ML BOTTLE SWISH/SPIT SCH ×2 (10:01→20:20)
[2017-03-13] MEDS: INSULIN REGULAR 100 UNIT/ML SUBCUT SCH ×5 (12:32→23:44)
--- NOTE | 2017-03-13 14:59 | Cardiothoracic Progress Note ---
Assessment and Plan (1) Coronary artery disease Status: Acute Assessment and plan: Postop day 1 status post CABG 3. The patient has been doing very well. He was extubated within 6 hours after surgery. His hemodynamics have been stable. He is on nasal cannula. He is alert awake alert oriented 3. He has minimal chest tube output. He is getting out of bed to chair and tolerating clear liquid diet. I started statin, aspirin, Plavix, Lasix today. DC [place] and DC A- line. Keep the patient under close observation in the intensive care unit today. Current Visit: Yes Exam (Progress Note) - Constitutional Vitals: Period Temp Pulse Resp BP Sys/Vance Pulse Ox Last 24 Hr 97 F-99.1 F 81-94 10-24 98-154/44-79 97-100 Result/EKG - Labs CBC & BMP: 03/13/17 03:20 03/13/17 03:20 Labs: Laboratory Results - last 24 hr 03/11/17 03/12/17 03/12/17 04:08 13:59 15:47 WBC RBC Hgb Hct MCV MCH MCHC RDW Plt Count MPV Neut % (Auto) Lymph % (Auto) [place] % (Auto) Eos % (Auto) Baso % (Auto) Neut # (Auto) Lymph # (Auto) [place] # (Auto) Eos # (Auto) Baso # (Auto) Immature Gran % Nucleated RBC % Immature Gran # Nucleated RBCs # Immature Plt Fraction ABG pH ABG pCO2 ABG pO2 ABG HCO3 ABG Total CO2 ABG O2 Saturation ABG Base Excess Hemoglobin Hematocrit Potassium Glucose Sodium Chloride Carbon Dioxide Anion Gap BUN Creatinine GFR Calculation BUN/Creatinine Ratio POC Glucose 232 H 172 H Calculated Osmolality Calcium Magnesium Crossmatch See Detail 03/12/17 03/12/17 03/12/17 17:00 18:00 19:13 WBC RBC Hgb Hct MCV MCH MCHC RDW Plt Count MPV Neut % (Auto) Lymph % (Auto) [place] % (Auto) Eos % (Auto) Baso % (Auto) Neut # (Auto) Lymph # (Auto) [place] # (Auto) Eos # (Auto) Baso # (Auto) Immature Gran % Nucleated RBC % Immature Gran # Nucleated RBCs # Immature Plt Fraction ABG pH 7.365 ABG pCO2 40.2 ABG pO2 111.0 H ABG HCO3 22.6 ABG Total CO2 21.1 L ABG O2 Saturation 98.1 ABG Base Excess -2.2 Hemoglobin 9.6 L Hematocrit 29.8 L Potassium 3.6 Glucose 143 H Sodium Chloride Carbon Dioxide Anion Gap BUN Creatinine GFR Calculation BUN/Creatinine Ratio POC Glucose 156 H 145 H Calculated Osmolality Calcium Magnesium Crossmatch 03/12/17 03/12/17 03/12/17 20:06 21:05 22:05 WBC RBC Hgb Hct MCV MCH MCHC RDW Plt Count MPV Neut % (Auto) Lymph % (Auto) [place] % (Auto) Eos % (Auto) Baso % (Auto) Neut # (Auto) Lymph # (Auto) [place] # (Auto) Eos # (Auto) Baso # (Auto) Immature Gran % Nucleated RBC % Immature Gran # Nucleated RBCs # Immature Plt Fraction ABG pH ABG pCO2 ABG pO2 ABG HCO3 ABG Total CO2 ABG O2 Saturation ABG Base Excess Hemoglobin Hematocrit Potassium Glucose Sodium Chloride Carbon Dioxide Anion Gap BUN Creatinine GFR Calculation BUN/Creatinine Ratio POC Glucose 134 H 122 H 100 Calculated Osmolality Calcium Magnesium Crossmatch 03/12/17 03/13/17 03/13/17 23:06 00:06 01:12 WBC RBC Hgb Hct MCV MCH MCHC RDW Plt Count MPV Neut % (Auto) Lymph % (Auto) [place] % (Auto) Eos % (Auto) Baso % (Auto) Neut # (Auto) Lymph # (Auto) [place] # (Auto) Eos # (Auto) Baso # (Auto) Immature Gran % Nucleated RBC % Immature Gran # Nucleated RBCs # Immature Plt Fraction ABG pH ABG pCO2 ABG pO2 ABG HCO3 ABG Total CO2 ABG O2 Saturation ABG Base Excess Hemoglobin Hematocrit Potassium Glucose Sodium Chloride Carbon Dioxide Anion Gap BUN Creatinine GFR Calculation BUN/Creatinine Ratio POC Glucose 85 107 H 104 Calculated Osmolality Calcium Magnesium Crossmatch 03/13/17 03/13/17 03/13/17 02:10 03:20 03:20 WBC 17.9 H D RBC 2.98 L Hgb 9.5 L Hct 27.9 L MCV 93.6 MCH 32 MCHC 34.1 RDW 14.6 Plt Count 114 L MPV 10.3 Neut % (Auto) 82.6 H Lymph % (Auto) 5.2 L [place] % (Auto) 11.5 Eos % (Auto) 0.0 Baso % (Auto) 0.1 Neut # (Auto) 14.8 H Lymph # (Auto) 0.9 L [place] # (Auto) 2.1 H Eos # (Auto) 0.0 Baso # (Auto) 0.0 Immature Gran % 0.6 Nucleated RBC % 0.0 Immature Gran # 0.10 Nucleated RBCs # 0.00 Immature Plt Fraction 0.0 ABG pH ABG pCO2 ABG pO2 ABG HCO3 ABG Total CO2 ABG O2 Saturation ABG Base Excess Hemoglobin Hematocrit Potassium 4.2 Glucose 118 H Sodium 139 Chloride 107 Carbon Dioxide 26 Anion Gap 10.2 BUN 11 Creatinine 0.80 GFR Calculation 108 BUN/Creatinine Ratio 13.00 POC Glucose 143 H Calculated Osmolality 276.5 Calcium 8.3 L Magnesium 2.1 Crossmatch 03/13/17 03/13/17 03/13/17 03:22 05:08 06:16 WBC RBC Hgb Hct MCV MCH MCHC RDW Plt Count MPV Neut % (Auto) Lymph % (Auto) [place] % (Auto) Eos % (Auto) Baso % (Auto) Neut # (Auto) Lymph # (Auto) [place] # (Auto) Eos # (Auto) Baso # (Auto) Immature Gran % Nucleated RBC % Immature Gran # Nucleated RBCs # Immature Plt Fraction ABG pH ABG pCO2 ABG pO2 ABG HCO3 ABG Total CO2 ABG O2 Saturation ABG Base Excess Hemoglobin Hematocrit Potassium Glucose Sodium Chloride Carbon Dioxide Anion Gap BUN Creatinine GFR Calculation BUN/Creatinine Ratio POC Glucose 136 H 85 84 Calculated Osmolality Calcium Magnesium Crossmatch 03/13/17 03/13/17 03/13/17 07:08 07:11 08:38 WBC RBC Hgb Hct MCV MCH MCHC RDW Plt Count MPV Neut % (Auto) Lymph % (Auto) [place] % (Auto) Eos % (Auto) Baso % (Auto) Neut # (Auto) Lymph # (Auto) [place] # (Auto) Eos # (Auto) Baso # (Auto) Immature Gran % Nucleated RBC % Immature Gran # Nucleated RBCs # Immature Plt Fraction ABG pH ABG pCO2 ABG pO2 ABG HCO3 ABG Total CO2 ABG O2 Saturation ABG Base Excess Hemoglobin Hematocrit Potassium Glucose Sodium Chloride Carbon Dioxide Anion Gap BUN Creatinine GFR Calculation BUN/Creatinine Ratio POC Glucose 145 H 131 H 130 H Calculated Osmolality Calcium Magnesium Crossmatch 03/13/17 10:49 WBC RBC Hgb Hct MCV MCH MCHC RDW Plt Count MPV Neut % (Auto) Lymph % (Auto) [place] % (Auto) Eos % (Auto) Baso % (Auto) Neut # (Auto) Lymph # (Auto) [place] # (Auto) Eos # (Auto) Baso # (Auto) Immature Gran % Nucleated RBC % Immature Gran # Nucleated RBCs # Immature Plt Fraction ABG pH ABG pCO2 ABG pO2 ABG HCO3 ABG Total CO2 ABG O2 Saturation ABG Base Excess Hemoglobin Hematocrit Potassium Glucose Sodium Chloride Carbon Dioxide Anion Gap BUN Creatinine GFR Calculation BUN/Creatinine Ratio POC Glucose 132 H Calculated Osmolality Calcium Magnesium Crossmatch Quality Measures - VTE Contraindication to Pharmacological VTE Prophylaxis: Active Bleeding
[2017-03-13] MEDS ORDERED: INFLUENZA VIRUS VACCINE 0.5 ML SYRINGE IM ONE (15:00)
[2017-03-13] MEDS ORDERED: ACETAMINOPHEN 325 MG TABLET PO PRN (18:05)
[2017-03-13] MEDS: ATORVASTATIN 40 MG TABLET PO SCH (20:18)
[2017-03-13] MEDS: ONDANSETRON 4 MG/2 ML VIAL IV PRN (23:01)
[2017-03-14] MEDS: ALBUMIN 5% 12.5 GM in PREMIX 1 EACH IV PRN ×2 (00:16)
[2017-03-14] MEDS: KETOROLAC 30 MG/1 ML VIAL IV SCH ×4 (02:45→20:31)
[2017-03-14] MEDS: INSULIN REGULAR 100 UNIT/ML SUBCUT SCH ×6 (03:27→20:30)
[2017-03-14 05:12] LABS: Basophils % 0.1 % (0.0-0.8); Hematocrit 28.3 VOL% (42.0-52.0); Hemoglobin 9.5 GM/DL (14.0-18.0); Lymphocytes # 1.1 10*3/uL (1.4-4.0); Lymphocytes % 5.7 % (21.2-54.2); Mean Corpuscular HGB Conc 33.6 GM/DL (32-36); Mean Corpuscular Hemoglobin 32 PG (27-34); Mean Corpuscular Volume 93.7 FL (87-102); Mean Platelet Volume 10.7 FL (9.6-12.0); Monocytes # 2.6 10*3/uL (0.11-0.8); Monocytes % 13.1 % (1.7-12.7); Neutrophils # 15.9 10*3/uL (1.4-7.4); Neutrophils % 80.1 % (38.7-73.9); Platelet Count 119 T/CUMM (130-400); Red Blood Count 3.02 MC/CUMM (3.8-5.5); White Blood Count 19.9 T/CUMM (4-12)
[2017-03-14 05:40] LABS: Calcium 8.7 MG/DL (8.5-10.1); Magnesium 2.5 MG/DL (1.8-2.4); Osmolality,Calculated 287.1 MOS/KG (273-304); Potassium 4.3 MMOL/L (3.5-5.1)
[2017-03-14] MEDS: ONDANSETRON 4 MG/2 ML VIAL IV PRN (08:42)
[2017-03-14] MEDS: CHLORHEXIDINE 0.12% ORAL RINSE 60 ML BOTTLE SWISH/SPIT SCH ×2 (08:46→20:32)
[2017-03-14] MEDS: LEVOFLOXACIN 750 MG TABLET PO SCH (08:49)
[2017-03-14] MEDS: CLOPIDOGREL 75 MG TABLET PO SCH (08:50)
[2017-03-14] MEDS: FUROSEMIDE 40 MG TABLET PO SCH (08:50)
[2017-03-14] MEDS: ASPIRIN EC 325 MG TABLET PO SCH (08:50)
--- NOTE | 2017-03-14 08:56 | XRay Report ---
XR chest 1V portable Indication: Surgery, pneumothorax Comparison: 13 March 2017 Findings: The heart and mediastinum are stable in size and configuration. Emblem-Yissel catheter is been removed. Remaining lines and tubes are unchanged in position. Left hemidiaphragm is elevated with left lower lung density similar to previous exam. The pulmonary vascularity is normal in caliber. No other lung infiltrates, effusions, pneumothorax or other abnormality is demonstrated. Impression: Removal of Emblem-Yissel catheter. No other significant changes. PROCEDURE INTERPRETED AT [facility] DEPARTMENT OF RADIOLOGY Final Report Signed by: Dr. Yosef Gleason
[2017-03-14] MEDS ORDERED: METOCLOPRAMIDE 10 MG/2 ML VIAL IV PRN (09:28)
[2017-03-14] MEDS ORDERED: POTASSIUM CHLORIDE 20 MEQ TABLET PO PRN (12:08)
[2017-03-14] MEDS ORDERED: ACETAMINOPHEN 325 MG TABLET PO PRN (12:08)
[2017-03-14] MEDS ORDERED: MAGNESIUM SULF RIDER 2 GM in PREMIX 1 EACH IV PRN (12:08)
[2017-03-14] MEDS ORDERED: GLUCAGON 1 MG VIAL IM PRN ×2 (12:08→13:45)
[2017-03-14] MEDS ORDERED: SODIUM CHLOR 0.45% KCL 20 MEQ 20 MEQ/1,000 ML BAG IV SCH (12:08)
[2017-03-14] MEDS ORDERED: MAGNESIUM SULF RIDER 4 GM in PREMIX 1 EACH IV PRN (12:08)
[2017-03-14] MEDS ORDERED: ONDANSETRON 4 MG/2 ML VIAL IV PRN (12:08)
[2017-03-14] MEDS ORDERED: MAGNESIUM HYDROXIDE SUSP 30 ML UDCUP PO PRN (12:08)
[2017-03-14] MEDS ORDERED: DEXTROSE 50% 25 GM/50 ML SYRINGE IV PRN (12:08)
[2017-03-14] MEDS: PANTOPRAZOLE 40 MG TABLET PO SCH (12:46)
[2017-03-14] MEDS: ALLOPURINOL 300 MG TABLET PO SCH (12:47)
--- NOTE | 2017-03-14 13:00 | Cardiothoracic Progress Note ---
Assessment and Plan (1) Coronary artery disease Status: Acute Assessment and plan: Postop day 2 status post CABG 3. The patient has been doing very well. He has been having some productive cough. He also does have postnasal drainage which made him nauseous. Nausea improved with Zofran. Has been tolerating his diet his diet and passing gas. He has been out of bed to chair. He has a minimal air leak. Transferred to telemetry today. Out of bed. Current Visit: Yes Exam (Progress Note) - Constitutional Vitals: Period Temp Pulse Resp BP Sys/Vance Pulse Ox Last 24 Hr 98.4 F-100.3 F 80-99 16-25 115-132/64-77 96-99 Result/EKG - Labs CBC & BMP: 03/14/17 04:40 03/14/17 04:40 Labs: Laboratory Results - last 24 hr 03/11/17 03/13/17 03/13/17 04:08 16:00 19:18 WBC RBC Hgb Hct MCV MCH MCHC RDW Plt Count MPV Neut % (Auto) Lymph % (Auto) [place] % (Auto) Eos % (Auto) Baso % (Auto) Neut # (Auto) Lymph # (Auto) [place] # (Auto) Eos # (Auto) Baso # (Auto) Immature Gran % Nucleated RBC % Immature Gran # Nucleated RBCs # Immature Plt Fraction Sodium Potassium Chloride Carbon Dioxide Anion Gap BUN Creatinine GFR Calculation BUN/Creatinine Ratio Glucose POC Glucose 193 H 178 H Calculated Osmolality Calcium Magnesium Crossmatch See Detail 03/13/17 03/14/17 03/14/17 23:26 03:22 04:40 WBC 19.9 H RBC 3.02 L Hgb 9.5 L Hct 28.3 L MCV 93.7 MCH 32 MCHC 33.6 RDW 15.0 Plt Count 119 L MPV 10.7 Neut % (Auto) 80.1 H Lymph % (Auto) 5.7 L [place] % (Auto) 13.1 H Eos % (Auto) 0.0 Baso % (Auto) 0.1 Neut # (Auto) 15.9 H Lymph # (Auto) 1.1 L [place] # (Auto) 2.6 H Eos # (Auto) 0.0 Baso # (Auto) 0.0 Immature Gran % 1.0 Nucleated RBC % 0.0 Immature Gran # 0.20 Nucleated RBCs # 0.00 Immature Plt Fraction 0.0 Sodium Potassium Chloride Carbon Dioxide Anion Gap BUN Creatinine GFR Calculation BUN/Creatinine Ratio Glucose POC Glucose 143 H 143 H Calculated Osmolality Calcium Magnesium Crossmatch 03/14/17 03/14/17 03/14/17 04:40 07:39 11:57 WBC RBC Hgb Hct MCV MCH MCHC RDW Plt Count MPV Neut % (Auto) Lymph % (Auto) [place] % (Auto) Eos % (Auto) Baso % (Auto) Neut # (Auto) Lymph # (Auto) [place] # (Auto) Eos # (Auto) Baso # (Auto) Immature Gran % Nucleated RBC % Immature Gran # Nucleated RBCs # Immature Plt Fraction Sodium 142 Potassium 4.3 Chloride 106 Carbon Dioxide 32 Anion Gap 8.3 BUN 18 Creatinine 0.90 GFR Calculation 103 BUN/Creatinine Ratio 20.00 Glucose 145 H POC Glucose 139 H 122 H Calculated Osmolality 287.1 Calcium 8.7 Magnesium 2.5 H Crossmatch Quality Measures - VTE Contraindication to Pharmacological VTE Prophylaxis: Active Bleeding
[2017-03-14] MEDS ORDERED: DEXTROSE 50% 25 GM/50 ML VIAL IV PRN (13:45)
[2017-03-14] MEDS: ATORVASTATIN 40 MG TABLET PO SCH (20:32)
[2017-03-14] MEDS: METOPROLOL TARTRATE 25 MG TABLET PO SCH (20:32)
[2017-03-14] MEDS ORDERED: CHLORHEXIDINE 0.12% ORAL RINSE 60 ML BOTTLE SWISH/SPIT SCH (21:00)
[2017-03-14] MEDS: LATANOPROST 0.005% OPH SOLN 2.5 ML BOTTLE BOTH EYES SCH (21:12)
[2017-03-15] MEDS: KETOROLAC 30 MG/1 ML VIAL IV SCH ×4 (03:20→21:39)
[2017-03-15 05:53] LABS: Basophils % 0.2 % (0.0-0.8); Eosinophils # 0.1 10*3/uL (0.0-0.87); Eosinophils % 0.5 % (0.00-10.9); Hematocrit 29.9 VOL% (42.0-52.0); Hemoglobin 9.9 GM/DL (14.0-18.0); Immature Granulocytes % 0.5 %; Immature Granulocytes Absolute 0.08 #; Lymphocytes # 2.1 10*3/uL (1.4-4.0); Lymphocytes % 13.2 % (21.2-54.2); Mean Corpuscular HGB Conc 33.1 GM/DL (32-36); Mean Corpuscular Hemoglobin 31 PG (27-34); Mean Corpuscular Volume 94.9 FL (87-102); Mean Platelet Volume 10.7 FL (9.6-12.0); Monocytes # 2.9 10*3/uL (0.11-0.8); Monocytes % 18.1 % (1.7-12.7); NRBC # 0.02 10*3/uL; Neutrophils # 10.9 10*3/uL (1.4-7.4); Neutrophils % 67.5 % (38.7-73.9); Platelet Count 133 T/CUMM (130-400); Red Blood Count 3.15 MC/CUMM (3.8-5.5); Red Cell Distribution Width 15.1 % (9.3-17.3); White Blood Count 16.1 T/CUMM (4-12)
[2017-03-15 06:20] LABS: Calcium 8.5 MG/DL (8.5-10.1); Calcium 8.6 MG/DL (8.5-10.1); Magnesium 2.4 MG/DL (1.8-2.4); Osmolality,Calculated 285.1 MOS/KG (273-304); Osmolality,Calculated 287.1 MOS/KG (273-304); Potassium 4.2 MMOL/L (3.5-5.1); Potassium 4.6 MMOL/L (3.5-5.1)
[2017-03-15 07:10] LABS: Lymphocytes 15 % (20-55); Segmented Neutrophils 72 % (50-85); Total Cells Counted 100
[2017-03-15 07:11] LABS: Burr Cells Slight; Hypochromasia 1+; Microcytosis 1+; Ovalocytes Slight
[2017-03-15 07:12] LABS: Platelet Estimate Adequate
--- NOTE | 2017-03-15 08:11 | XRay Report ---
History: Shortness of breath Date: 03/15/2017 Study: Chest x-ray AP portable Comparison exam: 03/14/2017 The chest tubes are in stable position. There is stable cardiomegaly. The mediastinal contour is unchanged in this patient status post prior median sternotomy. The pulmonary vasculature is not engorged. There is no pneumothorax. There is stable atelectatic change in the left lung base with moderate elevation of the left hemidiaphragm. The right lung is generally clear. Osseous structures are similar. Impression: No evidence of a pneumothorax. Stable left basilar atelectasis. Otherwise unchanged PROCEDURE INTERPRETED AT [facility] DEPARTMENT OF RADIOLOGY Final Report Signed by: Dr. Koki Leos
[2017-03-15] MEDS: INSULIN REGULAR 100 UNIT/ML SUBCUT SCH ×4 (08:26→21:40)
--- NOTE | 2017-03-15 08:37 | Cardiothoracic Progress Note ---
Assessment and Plan (1) Coronary artery disease Status: Acute Assessment and plan: Postop day 3 status post CABG 3. The patient has been doing very well. His cough and nausea have improved. He has been ambulatory. I will remove the pacing wire and the chest tubes today. I will start physical therapy aggressively today. Current Visit: Yes Exam (Progress Note) - Constitutional Vitals: Period Temp Pulse Resp BP Sys/Vance Pulse Ox Last 24 Hr 97.4 F-98.5 F 64-94 18-22 120-147/72-83 94-99 Result/EKG - Labs CBC & BMP: 03/15/17 04:26 03/15/17 04:26 Labs: Laboratory Results - last 24 hr 03/14/17 03/14/17 03/14/17 11:57 15:28 18:54 WBC RBC Hgb Hct MCV MCH MCHC RDW Plt Count MPV Neut % (Auto) Lymph % (Auto) [place] % (Auto) Eos % (Auto) Baso % (Auto) Neut # (Auto) Lymph # (Auto) [place] # (Auto) Eos # (Auto) Baso # (Auto) Total Counted Immature Gran % Nucleated RBC % Immature Gran # Segmented Neutrophils Lymphocytes Monocytes Nucleated RBCs # Platelet Estimate Immature Plt Fraction Hypochromasia Microcytosis Ovalocytes [place] Cells Sodium Potassium Chloride Carbon Dioxide Anion Gap BUN Creatinine GFR Calculation BUN/Creatinine Ratio Glucose POC Glucose 122 H 152 H 152 H Calculated Osmolality Calcium Magnesium 03/15/17 03/15/17 03/15/17 04:26 04:26 04:26 WBC 16.1 H RBC 3.15 L Hgb 9.9 L Hct 29.9 L MCV 94.9 MCH 31 MCHC 33.1 RDW 15.1 Plt Count 133 MPV 10.7 Neut % (Auto) 67.5 Lymph % (Auto) 13.2 L [place] % (Auto) 18.1 H Eos % (Auto) 0.5 Baso % (Auto) 0.2 Neut # (Auto) 10.9 H Lymph # (Auto) 2.1 [place] # (Auto) 2.9 H Eos # (Auto) 0.1 Baso # (Auto) 0.0 Total Counted 100 Immature Gran % 0.5 Nucleated RBC % 0.1 Immature Gran # 0.08 Segmented Neutrophils 72 Lymphocytes 15 L Monocytes 13 Nucleated RBCs # 0.02 Platelet Estimate Adequate Immature Plt Fraction 0.0 Hypochromasia 1+ Microcytosis 1+ Ovalocytes Slight [place] Cells Slight Sodium 142 142 Potassium 4.6 4.2 Chloride 106 105 Carbon Dioxide 29 29 Anion Gap 11.6 12.2 BUN 23 H 22 H Creatinine 0.80 0.80 GFR Calculation 115 115 BUN/Creatinine Ratio 28.00 H 27.00 H Glucose 110 H 106 POC Glucose Calculated Osmolality 287.1 285.1 Calcium 8.5 8.6 Magnesium 2.4 03/15/17 07:47 WBC RBC Hgb Hct MCV MCH MCHC RDW Plt Count MPV Neut % (Auto) Lymph % (Auto) [place] % (Auto) Eos % (Auto) Baso % (Auto) Neut # (Auto) Lymph # (Auto) [place] # (Auto) Eos # (Auto) Baso # (Auto) Total Counted Immature Gran % Nucleated RBC % Immature Gran # Segmented Neutrophils Lymphocytes Monocytes Nucleated RBCs # Platelet Estimate Immature Plt Fraction Hypochromasia Microcytosis Ovalocytes [place] Cells Sodium Potassium Chloride Carbon Dioxide Anion Gap BUN Creatinine GFR Calculation BUN/Creatinine Ratio Glucose POC Glucose 121 H Calculated Osmolality Calcium Magnesium Quality Measures - VTE Contraindication to Pharmacological VTE Prophylaxis: Active Bleeding Specialty Discharge - Follow Up or Referrals
[2017-03-15] MEDS ORDERED: ASPIRIN EC 325 MG TABLET PO SCH (09:00)
[2017-03-15] MEDS ORDERED: PANTOPRAZOLE 40 MG TABLET PO SCH (09:00)
[2017-03-15] MEDS: DOCUSATE SODIUM 100 MG CAPSULE PO SCH (10:18)
[2017-03-15] MEDS: FERROUS SULFATE 325 MG TABLET PO SCH (10:19)
[2017-03-15] MEDS: FUROSEMIDE 40 MG TABLET PO SCH (10:19)
[2017-03-15] MEDS: LEVOFLOXACIN 750 MG TABLET PO SCH (10:19)
[2017-03-15] MEDS: METOPROLOL TARTRATE 25 MG TABLET PO SCH ×2 (10:20→21:39)
[2017-03-15] MEDS: CLOPIDOGREL 75 MG TABLET PO SCH (10:20)
[2017-03-15] MEDS: ALLOPURINOL 300 MG TABLET PO SCH (10:21)
[2017-03-15] MEDS: CHLORHEXIDINE 0.12% ORAL RINSE 60 ML BOTTLE SWISH/SPIT SCH ×2 (10:21→21:40)
[2017-03-15] MEDS: ASPIRIN EC 325 MG TABLET PO SCH (12:07)
[2017-03-15] MEDS: PANTOPRAZOLE 40 MG TABLET PO SCH (12:07)
--- NOTE | 2017-03-15 12:29 | Sleep Medicine Consult ---
Assessment and Plan (1) Unspecified sleep apnea Status: Acute Assessment and plan: His history is concerning for sleep apnea. He does snore and he has significant comorbidities associated with untreated sleep apnea that include hypertension and type 2 diabetes. Sleep evaluation should be done given these comorbidities. Current Visit: Yes (2) Essential hypertension Status: Acute Assessment and plan: The prevalence rate for obstructive sleep apnea patients with hypertension is 35 %. That rate can be as high as 80% in patients who require 4 or more medications for blood pressure control. Current Visit: Yes (3) Type 2 diabetes mellitus Status: Acute Assessment and plan: The prevalence rate for obstructive sleep apnea in patients with type 2 diabetes can be as high as 86%. Those patients with moderate to severe obstructive sleep apnea are at a greater risk for diabetic nephropathy and neuropathy. Compliance with CPAP therapy for these patients can lead to improvement in glycemic control and improvement in insulin sensitivity. Current Visit: Yes History of Present Illness Chief complaint: Sleep apnea History of present illness: Mr. Monreal is a 76 year old male screening for possible sleep apnea and sleep medicine was consulted. He does have a history of snoring but no real complaints of sleep disturbance by his part. He denies awakening from sleep short of breath. He usually retires about 11:00 and awakens by 6 or 7 the next morning. He only awakens once at night to urinate and usually feels refreshed upon awakening. He denies ever being told that he stops breathing during his sleep. He does have a history of coronary disease and is status post bypass surgery. He does have a history of hypertension, diabetes, and gout. Home Medications Medication Instructions Recorded Confirmed Type Allopurinol [Allopurinol] 300 mg PO DAILY 03/10/17 03/10/17 History Amlodipine Besylate [Amlodipine 10 mg PO DAILY 03/10/17 03/10/17 History Besylate] Ezetimibe [Ezetimibe] 10 mg PO DAILY 03/10/17 03/10/17 History Latanoprost 0.005% Oph Soln 1 drop BOTH EYES BEDTIME 03/10/17 03/10/17 History [Xalatan 0.005% Oph Soln] Lisinopril [Lisinopril] 5 mg PO DAILY 03/10/17 03/10/17 History Metformin HCl [Metformin HCl] 500 mg PO BID 03/10/17 03/10/17 History Metoprolol Succinate Xl [Toprol Xl] 200 mg PO DAILY 03/10/17 03/10/17 History Rosuvastatin Calcium [Rosuvastatin 40 mg PO BEDTIME 03/10/17 03/10/17 History Calcium] hydroCHLOROthiazide 25 mg PO DAILY 03/10/17 03/10/17 History [Hydrochlorothiazide] Allergies Allergy/AdvReac Type Severity Reaction Status Date / Time No Known Allergies Allergy Verified 03/10/17 17:33 Review of systems: He denies any significant problems with daytime sleepiness. Exam (Pulmonay) H&P - Constitutional Vitals: Period Temp Pulse Resp BP Sys/Vance Pulse Ox Last 24 Hr 96.8 F-98.5 F 64-93 18-20 128-147/72-83 94-99 Exam: He is alert and responsive in no acute distress. Pupils equal round reactive to light and accommodation. Extraocular movements intact. Oropharynx with a class IV Mallampati exam. Neck is supple without adenopathy or thyromegaly. No supraclavicular adenopathy is noted. Chest with fair air movement bilaterally without focal wheeze or rhonchi. Cardiac exam reveals regular rhythm without murmur or gallop. Abdomen soft nontender without palpable hepatosplenomegaly or mass. Extremities without significant edema or clubbing. Neurologically, he is grossly intact. He moves all extremities with good strength and answered all questions appropriately. Medical,Surgical,& Family Hx - Medical History Cardio: History of: CAD, Hypertension, Cardiovascular Problems Neurology: No history of: Seizures HEENT: History of: Eye Problem (cataracts removed) Endocrine: History of: Diabetes Mellitus (NIDDM) (metformin to treat) Rheumatology: History of;: Gout Respiratory: History of: Respiratory Problems (eventration left diaphragm) - Surgical History Cardiac Surgeries: Sugical HX of: Cardiac Catheterization (03/09/17) Abdominal Surgeries: Surgical HX of: Colonoscopy - Family History Family History: Reports;: Family Diabetes, Family Heart Disease, Family Hypertension, Family Stroke Denies;: Family Anesthesia Reaction, Family Cancer - Social History Smoking Status: Never smoker Frequency of Alcohol Use: None Type of Drug Use: None Results - Labs CBC & BMP: 03/15/17 04:26 03/15/17 04:26 Lab Results: I have reviewed the past 24 hour labs Quality Measures - VTE Contraindication to Pharmacological VTE Prophylaxis: Active Bleeding Specialty Discharge - Follow Up or Referrals
[2017-03-15] MEDS: ATORVASTATIN 40 MG TABLET PO SCH (21:39)
[2017-03-15] MEDS: LATANOPROST 0.005% OPH SOLN 2.5 ML BOTTLE BOTH EYES SCH (21:39)
[2017-03-16] MEDS: KETOROLAC 30 MG/1 ML VIAL IV SCH ×4 (04:18→21:33)
[2017-03-16 06:19] LABS: Basophils % 0.2 % (0.0-0.8); Eosinophils # 0.4 10*3/uL (0.0-0.87); Eosinophils % 3.4 % (0.00-10.9); Hematocrit 29.6 VOL% (42.0-52.0); Hemoglobin 9.7 GM/DL (14.0-18.0); Immature Granulocytes % 0.5 %; Immature Granulocytes Absolute 0.06 #; Lymphocytes # 2.6 10*3/uL (1.4-4.0); Lymphocytes % 20.2 % (21.2-54.2); Mean Corpuscular HGB Conc 32.8 GM/DL (32-36); Mean Corpuscular Hemoglobin 32 PG (27-34); Mean Corpuscular Volume 96.4 FL (87-102); Mean Platelet Volume 10.1 FL (9.6-12.0); Monocytes # 2.2 10*3/uL (0.11-0.8); Monocytes % 17.1 % (1.7-12.7); NRBC # 0.02 10*3/uL; Neutrophils # 7.5 10*3/uL (1.4-7.4); Neutrophils % 58.6 % (38.7-73.9); Platelet Count 157 T/CUMM (130-400); Red Blood Count 3.07 MC/CUMM (3.8-5.5); Red Cell Distribution Width 14.9 % (9.3-17.3); White Blood Count 12.8 T/CUMM (4-12)
[2017-03-16 06:51] LABS: Eosinophils 2 % (0-10); Hypochromasia Slight; Lymphocytes 17 % (20-55); Microcytosis 1+; Platelet Estimate Decreased; Segmented Neutrophils 65 % (50-85); Total Cells Counted 100
[2017-03-16 06:55] LABS: Calcium 8.3 MG/DL (8.5-10.1); Magnesium 2.1 MG/DL (1.8-2.4); Osmolality,Calculated 290.7 MOS/KG (273-304); Potassium 4.1 MMOL/L (3.5-5.1)
--- NOTE | 2017-03-16 08:38 | XRay Report ---
XR chest 1V portable Indication: SOB Comparison: Chest x-ray dated March 15, 2017 Technique: Single frontal view of the chest. Findings: Continued cardiomegaly status post sternotomy. Interval removal of mediastinal drain. Left-sided chest tube appears unchanged. There is continued atelectasis/consolidation of the left lung base with probable small left pleural fluid. There is continued elevation of left hemidiaphragm. Electronic device projects over the left upper quadrant. Visualized osseous and surrounding soft tissue structures otherwise appear grossly unchanged. IMPRESSION: No adverse interval change. PROCEDURE INTERPRETED AT [facility] DEPARTMENT OF RADIOLOGY Final Report Signed by: Dr Liban Quach
--- NOTE | 2017-03-16 09:09 | Sleep Medicine Progress Note ---
Assessment and Plan (1) Unspecified sleep apnea Status: Acute Assessment and plan: Patient had a borderline negative HST in all likelihood impacted by supplemental oxygen. I suspect that he does have obstructive sleep apnea based on these findings and he will need in lab polysomnography after discharge. Current Visit: Yes (2) Essential hypertension Status: Acute Current Visit: Yes (3) Type 2 diabetes mellitus Status: Acute Current Visit: Yes Sleep Medicine Subjective Interval history: Patient did undergo home sleep testing last night after having his chest tubes removed. He had borderline findings on HST. He does have evidence of abnormal breathing but his overall respiratory event index was just less than 5 and probably related to supplemental oxygen. He will require an lab polysomnography for what I suspect to be significant sleep apnea. Exam (Progress Note) - Constitutional Vitals: Period Temp Pulse Resp BP Sys/Vance Pulse Ox Last 24 Hr 96.8 F-98.0 F 82-95 18-21 127-155/69-86 95-100 Exam: He is alert and responsive in no acute distress. Neck supple without adenopathy. He has a class IV Mallampati exam. Chest with symmetrical breath sounds without significant wheeze or rhonchi. Cardiac exam reveals regular rhythm without murmur or gallop. Abdomen soft nontender extremities without increased edema. Results - Labs CBC & BMP: 03/16/17 05:59 03/16/17 05:59 Lab Results: I have reviewed the past 24 hour labs Specialty Discharge - Follow Up or Referrals
[2017-03-16] MEDS: INSULIN REGULAR 100 UNIT/ML SUBCUT SCH ×4 (09:56→21:44)
[2017-03-16] MEDS: ASPIRIN EC 325 MG TABLET PO SCH (10:27)
[2017-03-16] MEDS: FUROSEMIDE 40 MG TABLET PO SCH (10:27)
[2017-03-16] MEDS: FERROUS SULFATE 325 MG TABLET PO SCH (10:27)
[2017-03-16] MEDS: ALLOPURINOL 300 MG TABLET PO SCH (10:28)
[2017-03-16] MEDS: CLOPIDOGREL 75 MG TABLET PO SCH (10:28)
[2017-03-16] MEDS: PANTOPRAZOLE 40 MG TABLET PO SCH (10:28)
[2017-03-16] MEDS: LEVOFLOXACIN 750 MG TABLET PO SCH (10:28)
[2017-03-16] MEDS: METOPROLOL TARTRATE 25 MG TABLET PO SCH ×2 (10:28→21:32)
[2017-03-16] MEDS: DOCUSATE SODIUM 100 MG CAPSULE PO SCH (10:28)
[2017-03-16] MEDS: CHLORHEXIDINE 0.12% ORAL RINSE 60 ML BOTTLE SWISH/SPIT SCH ×2 (10:29→21:32)
--- NOTE | 2017-03-16 12:35 | XRay Report ---
XR chest 1V portable Indication: Chest tube removal Comparison: 16 March 2017 Findings: The heart and mediastinum are stable in size and configuration with cardiac surgery changes. Chest tube is been removed. There is residual left lower lung increased density and elevation left hemidiaphragm. The pulmonary vascularity is normal in caliber. No lung infiltrates, effusions, pneumothorax or other abnormality is demonstrated. Impression: Removal of chest tube, no other significant changes. PROCEDURE INTERPRETED AT [facility] DEPARTMENT OF RADIOLOGY Final Report Signed by: Dr. Yosef Gleason
--- NOTE | 2017-03-16 14:28 | Discharge Summary ---
Hospital Course - Hospital Course Hospital Course: The patient was transferred from [place] under my care for unstable angina with severe multivessel coronary artery disease. The patient underwent a CABG without any problems. He was extubated within 6 hours after surgery. He was transferred to telemetry postoperative day 1. Chest tubes remained to waterseal with minimal chest tube output. Postoperative day 2 and 3 the patient continued to progress very well. He was tolerating his diet. He was hemodynamically stable. He was having bowel movements. Chest tube and pacing wire was removed and chest x-ray remained stable. Of note the patient was found to have left hemidiaphragmatic elevation preoperatively. This was found accidentally on a chest x-ray that was obtained the preop. On postoperative day 4 the patient was ready for discharge. Diagnosis - Discharge Diagnosis (1) Coronary artery disease Status: Acute Specialty Discharge - Follow Up or Referrals Discharge Plan - Discharge Data Disposition: Disch/Xfer-Ip Rehab Fac Condition at Discharge: Stable Discharge Diet: advance to your usual diet Activity: resume usual activities as tolerated Weight Bearing at Discharge: full weight bearing Contact your physician if you experience:: fever over 101, Difficulty voiding, Redness or swelling, Nausea/Vomiting, Shortness of breath, Bleeding - Discharge Medications New Clopidogrel [Plavix] 75 mg PO DAILY tablet Acetaminophen Tab [Tylenol Tab] 650 mg PO Q4H PRN tablet PRN Reason: Fever, Headache, Mild Pain Aspirin EC Tab 325 mg PO DAILY tablet Atorvastatin [Lipitor] 40 mg PO BEDTIME tablet Ferrous Sulfate Tab [Feosol Original Tab] 325 mg PO DAILY tablet Furosemide Tab [Lasix Tab] 40 mg PO DAILY tablet Levofloxacin Tab [Levaquin Tab] 750 mg PO DAILY tablet Metoprolol Tartrate Tab [Lopressor Tab] 25 mg PO BID tablet Pantoprazole Tab [Protonix Tab] 40 mg PO DAILY tablet Potassium Chloride Cap/Tab [K Dur] 20 meq PO .PER PROTOCOL PRN tablet PRN Reason: Per Protocol Continue Rosuvastatin Calcium 40 mg PO BEDTIME Metformin HCl 500 mg PO BID Ezetimibe 10 mg PO DAILY Amlodipine Besylate 10 mg PO DAILY Allopurinol 300 mg PO DAILY Latanoprost 0.005% Oph Soln [Xalatan 0.005% Oph Soln] 1 drop BOTH EYES BEDTIME Discontinued Metoprolol Succinate Xl [Toprol Xl] 200 mg PO DAILY Lisinopril [Lisinopril] 5 mg PO DAILY hydroCHLOROthiazide [Hydrochlorothiazide] 25 mg PO DAILY - Follow Up or Referral - Forms/Instructions Instructions: Coronary Artery Bypass Graft (DC), Heart Healthy Diet (GEN), Sternal Precautions (GEN) Exam - Constitutional Vitals: Period Temp Pulse Resp BP Sys/Vance Pulse Ox Last 24 Hr 97 F-98.4 F 82-100 18-21 127-155/69-86 95-100 Discharge Results Procedures and tests throughout hospitalization: Pending Orders 03/11/17 04:08 Fresh Frozen Plasma IN AM Red Blood Cells Leuko Red IN AM Single Donor Platelets IN AM Type and Screen Routine 03/18/17 04:00 XR chest 2V IN AM Basic Metabolic Panel w/Mg IN AM Comp Blood Count Auto Diff IN AM Magnesium IN AM 03/19/17 04:00 XR chest 2V IN AM Basic Metabolic Panel w/Mg IN AM Comp Blood Count Auto Diff IN AM Magnesium IN AM Labs on day of discharge: Labs from last 24 hours 03/16/17 03/16/17 03/16/17 11:34 07:36 05:59 WBC RBC Hgb Hct MCV MCH MCHC RDW Plt Count MPV Neut % (Auto) Lymph % (Auto) [place] % (Auto) Eos % (Auto) Baso % (Auto) Neut # (Auto) Lymph # (Auto) [place] # (Auto) Eos # (Auto) Baso # (Auto) Total Counted Immature Gran % Nucleated RBC % Immature Gran # Segmented Neutrophils Lymphocytes Monocytes Eosinophils Nucleated RBCs # Platelet Estimate Immature Plt Fraction Hypochromasia Microcytosis Sodium 145 Potassium 4.1 Chloride 109 H Carbon Dioxide 33 H Anion Gap 7.1 BUN 20 H Creatinine 0.80 GFR Calculation 93 BUN/Creatinine Ratio 25.00 H Glucose 100 POC Glucose 132 H 115 H Calculated Osmolality 290.7 Calcium 8.3 L Magnesium 2.1 03/16/17 03/15/17 03/15/17 05:59 20:49 15:22 WBC 12.8 H RBC 3.07 L Hgb 9.7 L Hct 29.6 L MCV 96.4 MCH 32 MCHC 32.8 RDW 14.9 Plt Count 157 MPV 10.1 Neut % (Auto) 58.6 Lymph % (Auto) 20.2 L [place] % (Auto) 17.1 H Eos % (Auto) 3.4 Baso % (Auto) 0.2 Neut # (Auto) 7.5 H Lymph # (Auto) 2.6 [place] # (Auto) 2.2 H Eos # (Auto) 0.4 Baso # (Auto) 0.0 Total Counted 100 Immature Gran % 0.5 Nucleated RBC % 0.2 Immature Gran # 0.06 Segmented Neutrophils 65 Lymphocytes 17 L Monocytes 16 H Eosinophils 2 Nucleated RBCs # 0.02 Platelet Estimate Decreased Immature Plt Fraction 0.0 Hypochromasia Slight Microcytosis 1+ Sodium Potassium Chloride Carbon Dioxide Anion Gap BUN Creatinine GFR Calculation BUN/Creatinine Ratio Glucose POC Glucose 131 H 151 H Calculated Osmolality Calcium Magnesium DS: Provider Date of admission: 03/10/17 14:50 Primary care physician: . No PCP Attending physician on admission: Bryanna Camara Consults: 03/10/17 15:31 Consult to Dietitian [CONS] Routine Reason for Dietitian: Other Consult Comment: low salt, low cholesterol, diet 03/14/17 11:34 Consult to Sleep Center [CONS] Routine Reason for Sleep Center: Sleep Center Physician 03/14/17 12:08 Consult to Cardiac Rehabilitation [CONS] Routine Reason for Cardiac Rehabilitation: Other Consult Comment: Post CABG/heart surgery Consult to Dietitian [CONS] Routine Reason for Dietitian: Dietary Consult Consult Comment: Cardiac, low salt, low cholesterol diet Consult to Occupational Therapy [CONS] Routine Reason for Occupational Therapy: Evaluate and Treat Consult to Physical Therapy [CONS] Routine Reason for Physical Therapy: Other Consult Comment: CV Rehab Discharging clinician: Bryanna Camara Expected date of discharge: 03/16/17
[2017-03-16] MEDS: LATANOPROST 0.005% OPH SOLN 2.5 ML BOTTLE BOTH EYES SCH (21:31)
[2017-03-16] MEDS: ATORVASTATIN 40 MG TABLET PO SCH (21:32)
[2017-03-17] MEDS: KETOROLAC 30 MG/1 ML VIAL IV SCH ×4 (07:14→21:22)
[2017-03-17] MEDS: INSULIN REGULAR 100 UNIT/ML SUBCUT SCH ×4 (08:45→21:22)
[2017-03-17] MEDS: FERROUS SULFATE 325 MG TABLET PO SCH (09:15)
[2017-03-17] MEDS: DOCUSATE SODIUM 100 MG CAPSULE PO SCH (09:15)
[2017-03-17] MEDS: ALLOPURINOL 300 MG TABLET PO SCH (09:15)
[2017-03-17] MEDS: METOPROLOL TARTRATE 25 MG TABLET PO SCH ×2 (09:15→21:21)
[2017-03-17] MEDS: FUROSEMIDE 40 MG TABLET PO SCH (09:16)
[2017-03-17] MEDS: LEVOFLOXACIN 750 MG TABLET PO SCH (09:16)
[2017-03-17] MEDS: ASPIRIN EC 325 MG TABLET PO SCH (09:16)
[2017-03-17] MEDS: PANTOPRAZOLE 40 MG TABLET PO SCH (09:16)
[2017-03-17] MEDS: CLOPIDOGREL 75 MG TABLET PO SCH (09:16)
[2017-03-17] MEDS ORDERED: DEXTROSE 50% 25 GM/50 ML VIAL IV PRN (11:00)
[2017-03-17] MEDS: CHLORHEXIDINE 0.12% ORAL RINSE 60 ML BOTTLE SWISH/SPIT SCH ×2 (15:53→21:22)
[2017-03-17] MEDS: LATANOPROST 0.005% OPH SOLN 2.5 ML BOTTLE BOTH EYES SCH (21:21)
[2017-03-17] MEDS: ATORVASTATIN 40 MG TABLET PO SCH (21:21)
[2017-03-18 04:16] LABS: Basophils % 0.1 % (0.0-0.8); Eosinophils # 0.4 10*3/uL (0.0-0.87); Eosinophils % 2.9 % (0.00-10.9); Hematocrit 29.2 VOL% (42.0-52.0); Hemoglobin 9.7 GM/DL (14.0-18.0); Immature Granulocytes % 0.8 %; Immature Granulocytes Absolute 0.12 #; Lymphocytes # 2.6 10*3/uL (1.4-4.0); Lymphocytes % 17.5 % (21.2-54.2); Mean Corpuscular HGB Conc 33.2 GM/DL (32-36); Mean Corpuscular Hemoglobin 31 PG (27-34); Mean Corpuscular Volume 94.5 FL (87-102); Mean Platelet Volume 9.8 FL (9.6-12.0); Monocytes # 2.6 10*3/uL (0.11-0.8); Monocytes % 17.5 % (1.7-12.7); NRBC # 0.03 10*3/uL; Neutrophils # 8.9 10*3/uL (1.4-7.4); Neutrophils % 61.2 % (38.7-73.9); Platelet Count 179 T/CUMM (130-400); Red Blood Count 3.09 MC/CUMM (3.8-5.5); Red Cell Distribution Width 14.7 % (9.3-17.3); White Blood Count 14.6 T/CUMM (4-12)
[2017-03-18 04:39] LABS: Eosinophils 3 % (0-10); Hypochromasia 1+; Lymphocytes 11 % (20-55); Segmented Neutrophils 71 % (50-85); Total Cells Counted 100
[2017-03-18 04:40] LABS: Microcytosis 1+; Polychromasia Slight
[2017-03-18 04:47] LABS: Calcium 8.9 MG/DL (8.5-10.1); Magnesium 1.9 MG/DL (1.8-2.4); Osmolality,Calculated 282.3 MOS/KG (273-304); Potassium 3.9 MMOL/L (3.5-5.1)
[2017-03-18] MEDS: KETOROLAC 30 MG/1 ML VIAL IV SCH (04:58)
[2017-03-18] MEDS: INSULIN REGULAR 100 UNIT/ML SUBCUT SCH ×4 (07:40→21:39)
[2017-03-18] MEDS: DOCUSATE SODIUM 100 MG CAPSULE PO SCH (08:29)
[2017-03-18] MEDS: METOPROLOL TARTRATE 25 MG TABLET PO SCH ×2 (08:29→21:36)
[2017-03-18] MEDS: FUROSEMIDE 40 MG TABLET PO SCH (08:29)
[2017-03-18] MEDS: CLOPIDOGREL 75 MG TABLET PO SCH (08:29)
[2017-03-18] MEDS: ALLOPURINOL 300 MG TABLET PO SCH (08:29)
[2017-03-18] MEDS: PANTOPRAZOLE 40 MG TABLET PO SCH (08:29)
[2017-03-18] MEDS: CHLORHEXIDINE 0.12% ORAL RINSE 60 ML BOTTLE SWISH/SPIT SCH ×2 (08:30→21:37)
[2017-03-18] MEDS: ASPIRIN EC 325 MG TABLET PO SCH (08:30)
[2017-03-18] MEDS: LEVOFLOXACIN 750 MG TABLET PO SCH (08:30)
[2017-03-18] MEDS: FERROUS SULFATE 325 MG TABLET PO SCH (08:30)
--- NOTE | 2017-03-18 09:17 | XRay Report ---
XR chest 2V Indication: Shortness of breath Comparison: 16 March 2017 Findings: The heart and mediastinum are stable in size and configuration with cardiac surgery changes and elevation left hemidiaphragm. The pulmonary vascularity is normal in caliber. Small amount of left lower lung density is present with volume loss similar to previous exams. No other lung infiltrates, effusions, pneumothorax or other abnormality is demonstrated. Impression: No significant changes. PROCEDURE INTERPRETED AT [facility] DEPARTMENT OF RADIOLOGY Final Report Signed by: Dr. Yosef Gleason
[2017-03-18] MEDS: SULFAMETHOX/TRIMETHOPRIM 800-160 MG TABLET PO SCH ×2 (10:25→21:36)
--- NOTE | 2017-03-18 14:09 | Event Note ---
Please note that the patient has been waiting on insurance approval for the past 48 hours to be transferred to rehab facility. Multiple trials were attempted to get in touch and speed up the process of the approval from the patient's insurance for continued care of the patient as he needs at rehab due to his age and multiple comorbidities and the recent cardiac surgery. We have been having difficulties with his insurance company. Meanwhile the patient has been hemodynamically stable. He has been doing very well without any complaints. His activity has been increasing.
[2017-03-18] MEDS: ATORVASTATIN 40 MG TABLET PO SCH (21:36)
[2017-03-18] MEDS: LATANOPROST 0.005% OPH SOLN 2.5 ML BOTTLE BOTH EYES SCH (21:37)
[2017-03-19 05:06] LABS: Basophils # 0.1 10*3/uL (0.0-0.2); Basophils % 0.3 % (0.0-0.8); Eosinophils # 0.4 10*3/uL (0.0-0.87); Eosinophils % 2.7 % (0.00-10.9); Hematocrit 28.7 VOL% (42.0-52.0); Hemoglobin 9.4 GM/DL (14.0-18.0); Immature Granulocytes % 1.5 %; Immature Granulocytes Absolute 0.23 #; Lymphocytes # 2.5 10*3/uL (1.4-4.0); Lymphocytes % 16.3 % (21.2-54.2); Mean Corpuscular HGB Conc 32.8 GM/DL (32-36); Mean Corpuscular Hemoglobin 31 PG (27-34); Mean Corpuscular Volume 95.7 FL (87-102); Mean Platelet Volume 9.9 FL (9.6-12.0); Monocytes # 2.8 10*3/uL (0.11-0.8); Monocytes % 18.2 % (1.7-12.7); NRBC # 0.02 10*3/uL; Neutrophils # 9.3 10*3/uL (1.4-7.4); Platelet Count 188 T/CUMM (130-400); Red Cell Distribution Width 14.9 % (9.3-17.3); White Blood Count 15.3 T/CUMM (4-12)
[2017-03-19 05:50] LABS: Calcium 8.8 MG/DL (8.5-10.1); Magnesium 2.2 MG/DL (1.8-2.4); Potassium 4.4 MMOL/L (3.5-5.1)
[2017-03-19 05:55] LABS: Band Neutrophils 1 % (0-10); Eosinophils 1 % (0-10); Giant Platelets Few; Hypochromasia 1+; Lymphocytes 17 % (20-55); Microcytosis 1+; Ovalocytes Slight; Platelet Estimate Normal; Segmented Neutrophils 70 % (50-85); Total Cells Counted 100
--- NOTE | 2017-03-19 09:43 | XRay Report ---
History: Shortness of breath Date: 03/19/2017 Study: Chest x-ray PA and lateral Comparison exam: 03/18/2017 The cardiomediastinal silhouette is unchanged in this patient status post prior median sternotomy. The pulmonary vasculature is not engorged. There is stable atelectatic change in the left lower lung. There is no new or worsening infiltrate. There is trace bilateral pleural effusion as before. No pneumothorax is seen. Osseous structures are similar. Impression: No significant interval change from the previous study. Stable atelectatic changes left lung base. PROCEDURE INTERPRETED AT [facility] DEPARTMENT OF RADIOLOGY Final Report Signed by: Dr. Koki Leos
[2017-03-19] MEDS: INSULIN REGULAR 100 UNIT/ML SUBCUT SCH ×3 (09:51→17:41)
[2017-03-19] MEDS: DOCUSATE SODIUM 100 MG CAPSULE PO SCH (09:52)
[2017-03-19] MEDS: FUROSEMIDE 40 MG TABLET PO SCH (09:52)
[2017-03-19] MEDS: METOPROLOL TARTRATE 25 MG TABLET PO SCH (09:53)
[2017-03-19] MEDS: ALLOPURINOL 300 MG TABLET PO SCH (09:53)
[2017-03-19] MEDS: PANTOPRAZOLE 40 MG TABLET PO SCH (09:53)
[2017-03-19] MEDS: FERROUS SULFATE 325 MG TABLET PO SCH (09:53)
[2017-03-19] MEDS: ASPIRIN EC 325 MG TABLET PO SCH (09:53)
[2017-03-19] MEDS: LEVOFLOXACIN 750 MG TABLET PO SCH (09:53)
[2017-03-19] MEDS: SULFAMETHOX/TRIMETHOPRIM 800-160 MG TABLET PO SCH (09:54)
[2017-03-19] MEDS: CLOPIDOGREL 75 MG TABLET PO SCH (09:55)
[2017-03-19] MEDS: CHLORHEXIDINE 0.12% ORAL RINSE 60 ML BOTTLE SWISH/SPIT SCH (09:57)
[2017-03-19 17:15] VITALS: BP 120/67
== END 2017-03-19 18:48 | disposition home health service (06) | DRG 236 ==
LOC: N.TELES 14:50 → N.CVR 03-12 11:33 → N.ICU 03-13 08:34 → N.TELES 03-14 12:25
PROVIDERS: ADMIT Thoracic Surgery (Cardiothoracic Vascular Surgery); ATTEND Thoracic Surgery (Cardiothoracic Vascular Surgery)